=== PATIENT | male | born 1970 | race Hispanic/Latino ===

== ENCOUNTER 2016-09-18 23:01 | Emergency (ER) | payer MEDICAID ==
[2016-09-18 23:01] VITALS: BMI 32.3
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
[2016-09-18 23:44] LABS: RBC URINE 9 /hpf (0-3); URINE BACTERIA RARE (<OCC); URINE BILIRUBIN NEGATIVE (NEGATIVE); URINE COLOR Yellow (YELLOW); URINE GLUCOSE (UA) NORMAL (Normal); URINE KETONE NEGATIVE (NEGATIVE); URINE LEUKOCYTE ESTERASE NEG Leu/uL (Negative); URINE PROTEIN NEGATIVE (NEGATIVE); URINE UROBILINOGEN NORMAL mg/dL (0.2-1.0); WBC URINE 3 /hpf (0-5)
[2016-09-18 23:47] LABS: URINE BLOOD 1+ (NEGATIVE)
[2016-09-19 00:20] LABS: CHLORIDE 100 mmol/L (98-107)
[2016-09-19 00:21] LABS: POTASSIUM 3.8 mmol/L (3.6-5.2); SODIUM 134 mmol/L (132-148)
[2016-09-19 00:23] LABS: ALB/GLOB RATIO 1.4 (1.0-2.1); ALKALINE PHOSPHATASE 76 U/L (38-126); AST/SGOT 37 U/L (17-59); BLOOD UREA NITROGEN 19 mg/dL (9-20); CARBON DIOXIDE 21 mmol/L (22-30); GFR AFRICAN-AMERICAN > 60; TOTAL PROTEIN 7.8 g/dL (6.3-8.3)
[2016-09-19 00:24] LABS: ALCOHOL SERUM < 10 mg/dl (0-10); ALT/SGPT 46 U/L (21-72); BASO # 0.1 K/uL (0.0-0.2); BASO % 0.7 % (0.0-2.0); EOS # 0.3 K/uL (0.0-0.7); EOS % 2.9 % (0.0-4.0); GLUCOSE,RANDOM 92 mg/dL (75-110); HEMATOCRIT 38.5 % (35.0-51.0); LYMPH # 2.3 K/uL (1.0-4.3); LYMPH % 25.6 % (20.0-40.0); MEAN CELL VOLUME 89.6 fL (80.0-94.0); MEAN CORPUSCULAR HEMOGLOBIN 30.5 pg (27.0-31.0); MEAN PLATELET VOLUME 7.2 fL (7.2-11.7); MONO % 10.8 % (0.0-10.0); NRBC % 0.1 % (0.0-2.0); RED CELL DISTRIBUTION WIDTH 14.2 % (11.5-14.5); WHITE BLOOD COUNT 8.9 K/uL (4.8-10.8)
[2016-09-19 06:12] VITALS: O2SAT 96
--- NOTE | 2016-09-19 08:39 | RAD ---
PROCEDURE: CHEST RADIOGRAPH, 1 VIEW HISTORY: psych clearance COMPARISON: 11/19/2015 FINDINGS: LUNGS: Clear. PLEURA: No pneumothorax or pleural fluid seen. CARDIOVASCULAR: Normal. OSSEOUS STRUCTURES: No significant abnormalities. VISUALIZED UPPER ABDOMEN: Normal. OTHER FINDINGS: None. IMPRESSION: No active disease.
[2016-09-19 09:08] VITALS: BP 118/78; PULSE 96; RESP 18; TEMP 98.2
== END 2016-09-19 09:09 | disposition short-term general hospital (02) ==
LOC: C.ER 23:01
DX: F32.9 Major depressive disorder, single episode, unspecified (principal)